=== PATIENT | male | born 1945 | race American Indian/Alaskan Native ===

== ENCOUNTER 2020-10-19 08:24 | Outpatient (CLI) | payer MEDICARE, OTHER ==
--- NOTE | 2020-10-19 09:45 | XRay Report ---
CHEST 2 VIEWS INDICATION: PULMONARY HYPERTENSION. COMPARISON: None FINDINGS: Support devices: None. Heart: Within normal limits. Lungs/pleura: No acute air space or interstitial disease. No pneumothorax. Additional findings: None. IMPRESSION: No acute findings. NUCLEAR MEDICINE PERFUSION SCAN INDICATION: PULMONARY HYPERTENSION CORRELATION: Chest x-ray performed the same day. RADIOPHARMACEUTICAL: Perfusion: 5.1 mCi Tc-99m MAA given IV FINDINGS: Perfusion images show symmetric and uniform radiotracer distribution throughout bilateral lung zones with no evidence of unmatched segmental perfusion defects. Normal cardiac silhouette. IMPRESSION: Very low probability perfusion scan for pulmonary embolism. Signer Name: Tai Bhakta Jr, MD Signed: 10/19/2020 9:40 AM Workstation Name: [id number]
== END 2020-10-19 08:25 | disposition home or self-care (01) ==
LOC: NM 08:24
PROVIDERS: ATTEND Internal Medicine Cardiovascular Disease
DX: I27.20 Pulmonary hypertension, unspecified (principal)
CPT/HCPCS: 71046; 78580; A9540